=== PATIENT | female | born 1995 | race Caucasian/White ===

== ENCOUNTER 2017-01-20 08:17 | Emergency (ER) | payer MEDICAID, OTHER ==
--- NOTE | 2017-01-20 09:43 | ED Physician Documentation ---
PD HPI BACK PAIN - Stated complaint Stated Complaint: BACK PX - Chief complaint Chief Complaint: Back Pain - History obtained from History obtained from: Patient - History of Present Illness Timing - onset: How many days ago (4) Timing - duration: Days (4) Timing - details: Gradual onset, Still present Location: Lower Quality: Pain, Spasm, Sharp, Similar to prior episodes Associated symptoms: No: Fever, Weakness Improves with: Rest Worsened by: Movement, Lifting Contributing factors: Other (The patient works as a day care provider) Similar symptoms before: Diagnosis (lumbar strain) Recently seen: Not recently seen - Additional information Additional information: 21-year-old female with a history of lumbar strain has not been doing her physical therapy for about the past year. Over the past 4 days she has developed pain in her lower back and she has no specific injury to the area. 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 She went into work today was not able to perform her duties. She has been taking some ibuprofen without relief. Review of Systems Constitutional: denies: Fever Eyes: denies: Decreased vision Ears: denies: Ear pain Nose: denies: Congestion Throat: denies: Sore throat Cardiac: denies: Chest pain / pressure Respiratory: denies: Dyspnea, Cough GI: denies: Vomiting Skin: denies: Rash Musculoskeletal: reports: Back pain. denies: Neck pain, Extremity pain Neurologic: denies: Generalized weakness, Focal weakness, Numbness PD PAST MEDICAL HISTORY - Past Medical History Respiratory: Asthma - Past Surgical History Past Surgical History: Yes HEENT: Tonsil/Adenoidectomy - Present Medications Home Medications: Ambulatory Orders Medication Instructions Recorded Confirmed Cyclobenzaprine [Flexeril] 10 mg PO TID PRN #20 tablet 01/20/17 Tramadol HCl 50 - 100 mg PO Q6HR PRN #20 tablet 01/20/17 - Allergies Allergies/Adverse Reactions: Allergies Allergy/AdvReac Type Severity Reaction Status Date / Time azithromycin Allergy Rash Verified 03/15/16 10:10 latex Allergy Itching Verified 03/15/16 10:10 - Social History Does the pt smoke?: No Smoking Status: Never smoker Does the pt drink ETOH?: No Does the pt have substance abuse?: No - Immunizations Immunizations are current?: Yes - POLST Patient has POLST: No PD ED PE NORMAL - Vitals Vital signs reviewed: Yes (hypertensive ) - General General: No acute distress, Well developed/nourished - HEENT HEENT: Atraumatic, PERRL - Respiratory Respiratory: No respiratory distress - Back Back: No CVA TTP, Other (There is paraspinous muscle tenderness to the lower lumbar spine more on the left than the right.) - Derm Derm: Normal color, No rash - Extremities Extremities: No deformity, No edema - Neuro Neuro: No motor deficit, No sensory deficit - Psych Psych: Normal mood, Normal affect Results - Vitals Vitals: Vital Signs - 24 hr 01/20/17 01/20/17 08:20 08:26 Temperature 36.8 C Heart Rate 103 H Respiratory 18 Rate Blood Pressure 139/85 H O2 Saturation 100 Oxygen O2 Source Room air PD MEDICAL DECISION MAKING - ED course Complexity details: considered differential, d/w patient ED course: 21-year-old previously well female with back pain chronically has lumbar spasm and she is administered dexamethasone here in the emergency department we will put her on some tramadol and Flexeril. Departure - Departure Disposition: 01 Home, Self Care Clinical Impression: Lumbar strain Qualifiers: Encounter type: initial encounter Qualified Code(s): S39.012A - Strain of muscle, fascia and tendon of lower back, initial encounter Condition: Stable Instructions: ED Spasm Back No Trauma Follow-Up: Your, doctor [Other] Prescriptions: Tramadol HCl 50 - 100 mg PO Q6HR PRN #20 tablet PRN Reason: Pain Cyclobenzaprine [Flexeril] 10 mg PO TID PRN #20 tablet PRN Reason: Spasms
[2017-01-20] MEDS: DEXAMETHASONE 10 MG/ML VIAL PO STA (09:53)
[2017-01-20] MEDS ORDERED: CHERRY SYRUP 10 ML UDC PO ONE (09:54)
[2017-01-20] MEDS ORDERED: DEXAMETHASONE 10 MG/ML VIAL ONE (09:54)
[2017-01-20 09:55] VITALS: BP 123/75
== END 2017-01-20 09:55 | disposition home or self-care (01) ==
LOC: ED 08:17
DX: S39.012A Strain of muscle, fascia and tendon of lower back, initial encounter (principal); X50.0XXA Overexertion from strenuous movement or load, initial encounter; J45.909 Unspecified asthma, uncomplicated
CPT/HCPCS: 99283; A9270

== ENCOUNTER 2017-09-22 08:01 | Emergency (ER) | payer MEDICAID ==
[2017-09-22 08:06] VITALS: BP 127/68
[2017-09-22] MEDS ORDERED: CETIRIZINE 10 MG TABLET PO STA (09:38)
[2017-09-22] MEDS: predniSONE 20 MG TABLET PO STA ×2 (09:46→09:47)
--- NOTE | 2017-09-22 09:49 | ED Physician Documentation ---
History of Present Illness - Stated complaint Stated Complaint: SWOLLEN EYES - Chief complaint Chief Complaint: Heent - Additonal information Additional information: hx from pt 22 f denies preg awoke with swollen eyelids R > L no other swelling vision is slightly blurry no hives no fever no redness no FB no contacts no eye dc no new soap lotion etc improving while waited in ED Review of Systems Constitutional: denies: Fever Eyes: reports: Irritation. denies: Photophobia, Discharge : denies: Now EGA Skin: denies: Rash PD PAST MEDICAL HISTORY - Past Medical History Past Medical History: Yes Respiratory: Asthma - Past Surgical History Past Surgical History: Yes HEENT: Tonsil/Adenoidectomy - Present Medications Home Medications: Ambulatory Orders Medication Instructions Recorded Confirmed No Known Home Medications [No 09/22/17 09/22/17 Known Home Medications] - Allergies Allergies/Adverse Reactions: Allergies Allergy/AdvReac Type Severity Reaction Status Date / Time azithromycin Allergy Rash Verified 03/15/16 10:10 latex Allergy Itching Verified 03/15/16 10:10 - Social History Does the pt smoke?: No Smoking Status: Never smoker Does the pt drink ETOH?: No Does the pt have substance abuse?: No - Immunizations Immunizations are current?: Yes - POLST Patient has POLST: No PD ED PE NORMAL - Vitals Vital signs reviewed: Yes - HEENT HEENT: EOMI, Other (bilmild lid edema R > L, no erythema, no proptosis, no pain with EOMI, no injection to sclera but conj lower lid is red, no dc, no other facial swelling, ) - Cardiac Cardiac: RRR - Respiratory Respiratory: No respiratory distress Results - Vitals Vitals: Vital Signs - 24 hr 09/22/17 08:04 Temperature 36.2 C L Heart Rate 91 Respiratory 16 Rate Blood Pressure 127/68 O2 Saturation 98 Oxygen O2 Source Room air PD MEDICAL DECISION MAKING - ED course ED course: looks like allergic conjunctivitis, spont improving already Departure - Departure Disposition: 01 Home, Self Care Clinical Impression: Allergic conjunctivitis Qualifiers: Laterality: bilateral Qualified Code(s): H10.13 - Acute atopic conjunctivitis, bilateral Condition: Good Instructions: ED Allergic Conjunctivitis Comments: No further medications should be needed. Follow up with your PMD as needed after meds in the ED Cool compresses will help relieve the swelling Return to the ER if worse (whole face swollen, redness pain fever) Forms: Activity restrictions
== END 2017-09-22 10:02 | disposition home or self-care (01) ==
LOC: ED 08:01
DX: H10.13 Acute atopic conjunctivitis, bilateral (principal)
CPT/HCPCS: 99282; 99283; A9270; J7512

== ENCOUNTER 2017-10-08 16:03 | Emergency (ER) | payer MEDICAID ==
[2017-10-08 17:21] LABS: BILIRUBIN,URINE NEGATIVE (NEGATIVE); GLUCOSE, URINE (UA) NEGATIVE (NEGATIVE); KETONES,URINE (UA) NEGATIVE (NEGATIVE); LEUKOCYTE ESTERASE, URINE SMALL (NEGATIVE); NITRITE,URINE NEGATIVE (NEGATIVE); OCCULT BLOOD,URINE LARGE (NEGATIVE); PROTEIN,URINE 30 mg/dL (NEGATIVE); UROBILINOGEN,URINE 0.2 (NORMAL) E.U./dL (NORMAL)
[2017-10-08 17:23] LABS: CLARITY,URINE CLOUDY (CLEAR); HCG UR QUAL NEGATIVE
--- NOTE | 2017-10-08 17:30 | ED Physician Documentation ---
History of Present Illness - Stated complaint Stated Complaint: FEMALE - Chief complaint Chief Complaint: UTI - Additonal information Additional information: hx from pt 22 f LMP 1 month ago and vag bleeding now to ER for dysuria subj fever nausea and flank pain no dc Review of Systems Constitutional: reports: Fever (subjective) Cardiac: denies: Chest pain / pressure Respiratory: denies: Dyspnea GI: denies: Abdominal Pain : reports: Dysuria, LMP (now) Musculoskeletal: reports: Back pain Immunocompromised: denies: Immunocompromised PD PAST MEDICAL HISTORY - Past Medical History Respiratory: Asthma - Past Surgical History Past Surgical History: Yes HEENT: Tonsil/Adenoidectomy - Present Medications Home Medications: Ambulatory Orders Medication Instructions Recorded Confirmed Cephalexin [Keflex] 500 mg PO Q6H #39 capsule 10/08/17 Ibuprofen [Motrin] 400 mg PO Q6H PRN #30 tablet 10/08/17 Ondansetron Odt [Zofran] 4 mg TL Q6H PRN #10 tablet 10/08/17 Phenazopyridine [Pyridium] 100 mg PO Q8H PRN #9 tablet 10/08/17 - Allergies Allergies/Adverse Reactions: Allergies Allergy/AdvReac Type Severity Reaction Status Date / Time azithromycin Allergy Rash Verified 10/08/17 16:12 latex Allergy Itching Verified 10/08/17 16:12 - Social History Does the pt smoke?: No Smoking Status: Never smoker Does the pt drink ETOH?: No Does the pt have substance abuse?: No - Immunizations Immunizations are current?: Yes - POLST Patient has POLST: No PD ED PE NORMAL - Vitals Vital signs reviewed: Yes - Cardiac Cardiac: RRR - Respiratory Respiratory: No respiratory distress, Clear bilaterally - Abdomen Abdomen: Soft, Non tender - Back Back: Other (elizabeth CVA TTP) - Derm Derm: Normal color - Extremities Extremities: No deformity - Neuro Neuro: Alert and oriented X 3 Results - Vitals Vitals: Vital Signs - 24 hr 10/08/17 10/08/17 16:09 17:52 Temperature 37 C Heart Rate 100 108 H Respiratory 18 16 Rate Blood Pressure 132/91 H 131/81 H O2 Saturation 98 100 Oxygen O2 Source Room air - Labs Labs: Laboratory Tests 10/08/17 17:10 Urine Color YELLOW Urine Clarity CLOUDY Urine pH 6.0 Ur Specific [place] 1.015 Urine Protein 30 H Urine Glucose (UA) NEGATIVE Urine Ketones NEGATIVE Urine Occult Blood LARGE H Urine Nitrite NEGATIVE Urine Bilirubin NEGATIVE Urine Urobilinogen 0.2 (NORMAL) Ur Leukocyte Esterase SMALL H Urine RBC TNTC H Urine WBC >25 H Ur Squamous Epith Cells NONE SEEN Urine Bacteria Few Ur Microscopic Review INDICATED Urine Culture Comments INDICATED Urine HCG, Qual NEGATIVE PD MEDICAL DECISION MAKING - ED course ED course: does have flank pain and infection and hematuria but it is time for her menses and she has vag bleeding she has elizabeth CVA TTP and is not writhing in pain and I do not think this blood represents an infected stone will tx for pyelo Departure - Departure Disposition: Home, Self Care Clinical Impression: Pyelonephritis Condition: Good Instructions: ED Kidney Infec Female Prescriptions: Cephalexin [Keflex] 500 mg PO Q6H #39 capsule Ibuprofen [Motrin] 400 mg PO Q6H PRN #30 tablet PRN Reason: Pain Ondansetron Odt [Zofran] 4 mg TL Q6H PRN #10 tablet PRN Reason: Nausea / Vomiting Phenazopyridine [Pyridium] 100 mg PO Q8H PRN #9 tablet PRN Reason: painful urination Comments: A urine culture will be run to identify the bacteria causing your infection and if you need to be changed to a different antibiotic, the ER staff will call you. Please follow up with your PMD for a recheck before the weekend if not better
[2017-10-08 17:52] VITALS: BP 131/81
[2017-10-08 18:12] LABS: RBC,URINE TNTC /HPF (0-5); SQUAMOUS EPITHELIAL CELL,UR NONE SEEN (<= Few)
[2017-10-08 18:13] LABS: BACTERIA,URINE Few /HPF (None Seen)
[2017-10-08] MEDS ORDERED: cephALEXin 250 MG CAPSULE PO STA (18:19)
[2017-10-08] MEDS ORDERED: IBUPROFEN 400 MG TABLET PO STA (18:21)
== END 2017-10-08 18:31 | disposition home or self-care (01) ==
LOC: ED 16:03
DX: N12 Tubulo-interstitial nephritis, not specified as acute or chronic (principal)
CPT/HCPCS: 81001; 81025; 87086; 99283; A9270; 81003

== ENCOUNTER 2018-02-24 04:39 | Emergency (ER) | payer MEDICAID ==
[2018-02-24 04:48] VITALS: BP 131/78
[2018-02-24] MEDS ORDERED: ALBUTEROL NEB 2.5 MG/3 ML INH STA (04:49)
[2018-02-24] MEDS ORDERED: predniSONE 20 MG TABLET PO STA (04:49)
--- NOTE | 2018-02-24 04:50 | ED Physician Documentation ---
PD HPI DYSPNEA - Stated complaint Stated Complaint: SHORTNESS OF BREATH - Chief complaint Chief Complaint: Resp - History obtained from History obtained from: Patient - History of Present Illness Timing - onset: Today Timing - onset during: Rest Timing - details: Abrupt onset, Still present Inciting event(s): Out of meds Associated symptoms: Wheezing. No: Fever, Cough Recently seen: Not recently seen - Additional information Additional information: Patient is a 32 year old female with a history of asthma who is presenting to the emergency department for shortness of breath and wheezing. Patient states that she woke up from sleep with the symptoms. Patient denies any fever or chills. patient currently does not have an inhaler at her house since it had been a few years. Review of Systems Ten Systems: 10 systems reviewed and negative Constitutional: denies: Fever, Chills Respiratory: reports: Dyspnea, Cough, Wheezing PD PAST MEDICAL HISTORY - Past Medical History Respiratory: Asthma - Past Surgical History Past Surgical History: Yes HEENT: Tonsil/Adenoidectomy - Present Medications Home Medications: Ambulatory Orders Medication Instructions Recorded Confirmed Cephalexin [Keflex] 500 mg PO Q6H #39 capsule 10/08/17 Ibuprofen [Motrin] 400 mg PO Q6H PRN #30 tablet 10/08/17 Ondansetron Odt [Zofran] 4 mg TL Q6H PRN #10 tablet 10/08/17 Phenazopyridine [Pyridium] 100 mg PO Q8H PRN #9 tablet 10/08/17 Albuterol Sulfate [Proventil Hfa 1 - 2 puffs INH Q4H PRN #1 inhaler 02/24/18 Inhaler] predniSONE [Prednisone] 40 mg PO DAILY 5 Days tablet 02/24/18 - Allergies Allergies/Adverse Reactions: Allergies Allergy/AdvReac Type Severity Reaction Status Date / Time azithromycin Allergy Rash Verified 02/24/18 04:48 latex Allergy Itching Verified 02/24/18 04:48 - Social History Does the pt smoke?: No Smoking Status: Never smoker Does the pt drink ETOH?: No Does the pt have substance abuse?: No - Immunizations Immunizations are current?: Yes - POLST Patient has POLST: No PD ED PE NORMAL - Vitals Vital signs reviewed: Yes - General General: Alert and oriented X 3 - HEENT HEENT: Atraumatic - Neck Neck: Supple, no meningeal sign - Cardiac Cardiac: RRR, No murmur - Abdomen Abdomen: Soft - Derm Derm: Normal color, Warm and dry - Extremities Extremities: No deformity - Neuro Neuro: Alert and oriented X 3 Eye Opening: Spontaneous PD ED PE EXPANDED - Respiratory Respiratory: Wheezing, Right upper lobe, Right middle lobe, Right lower lobe, Left upper lobe, Left lower lobe. No: Stridor, Accessory mm use Results - Vitals Vitals: Vital Signs - 24 hr 02/24/18 02/24/18 02/24/18 04:46 04:50 04:59 Temperature 36.9 C Heart Rate 108 H 99 109 H Respiratory 17 16 20 Rate Blood Pressure 131/78 H O2 Saturation 97 98 Oxygen O2 Source Room air PD MEDICAL DECISION MAKING - ED course Complexity details: reviewed old records, reviewed results, re-evaluated patient, considered differential, d/w patient ED course: Patient was seen and examined at bedside. patient had wheezing in all rosen and was treated with prednisone and 5mg of albuterol. UPon re-evaluation patient's symptoms had improved. patient required no further work up at this time. prescriptions were written and patient was stable for discharge with outpatient follow up. - Sepsis Event Vital Signs: Vital Signs - 24 hr 02/24/18 02/24/18 02/24/18 04:46 04:50 04:59 Temperature 36.9 C Heart Rate 108 H 99 109 H Respiratory 17 16 20 Rate Blood Pressure 131/78 H O2 Saturation 97 98 Oxygen O2 Source Room air Departure - Departure Disposition: 01 Home, Self Care Clinical Impression: Asthma Condition: Good Instructions: Asthma Dc Follow-Up: primary,care provider [Other] - As Needed Prescriptions: Albuterol Sulfate [Proventil Hfa Inhaler] 1 - 2 puffs INH Q4H PRN #1 inhaler PRN Reason: Shortness Of Air/Wheezing predniSONE [Prednisone] 40 mg PO DAILY 5 Days tablet Comments: Your symptoms today are being caused by an asthma attack. You had your first dose of steroids today and you will be on them for the next 5 days. you can use the inhaler up to every few hours as needed in an acute phase. you should follow up with your doctor for routine care and return to the emergency department as needed for new, worsening or uncontrollable symptoms.
== END 2018-02-24 05:52 | disposition home or self-care (01) ==
LOC: ED 04:39
DX: J45.909 Unspecified asthma, uncomplicated (principal)
CPT/HCPCS: 94640; 94664; 99283; J7512